=== PATIENT | male | born 1995 | race Hispanic/Latino ===

== ENCOUNTER 2023-01-01 04:51 | Emergency (ER) | payer OTHER, SELFPAY ==
[~2023-01-01] VITALS: Ht 170.2 cm; Wt 81.6 kg
[2023-01-01 05:23] LABS: BASOPHILS % (AUTO) 0.5 % (0.0-5.0); EOSINOPHILS % (AUTO) 0.8 % (0.0-8.0); HEMATOCRIT 42.6 % (42-54); LYMPHOCYTES % (AUTO) 14.5 % (21.0-51.0); MEAN CORPUSCULAR HEMOGLOBIN 31.6 pg (27.0-33.0); MEAN CORPUSCULAR VOLUME 90.4 fL (79-99); MONOCYTES % (AUTO) 6.7 % (3.0-13.0); PLATELET COUNT (AUTO) 322 K/uL (130-400); RED BLOOD CELL COUNT(AUTO) 4.71 MIL/uL (4.50-6.20); RED CELL DISTRIBUTION WIDTH 11.9 % (11.0-15.5); WHITE BLOOD COUNT (AUTO) 15.4 K/uL (4.8-10.8)
[2023-01-01 05:29] LABS: APPEARANCE,URINE CLOUDY (CLEAR); BILIRUBIN,URINE NEGATIVE (NEGATIVE); COLOR,URINE LIGHT-ORANGE (YELLOW); GLUCOSE, URINE (UA) NEGATIVE (NEGATIVE); KETONES,URINE NEGATIVE (NEGATIVE); LEUKOCYTE ESTERASE ,URINE NEGATIVE Leu/uL (NEGATIVE); NITRATE,URINE NEGATIVE (NEGATIVE); OCCULT BLOOD,URINE LARGE (NEGATIVE); PH,URINE 5.5 (5.0-8.0); PROTEIN,URINE 70 mg/dL (NEGATIVE); UROBILINOGEN,URINE 0.2 mg/dL (0.2-1.0)
[2023-01-01] MEDS ORDERED: MORPHINE 2 MG SYG IVP ONE (05:30)
[2023-01-01] MEDS ORDERED: KETOROLAC 30MG VIAL (30MG/ML) IVP ONE (05:30)
[2023-01-01] MEDS ORDERED: ONDANSETRON 4MG INJ IVP ONE (05:30)
[2023-01-01] MEDS ORDERED: 0.9%NACL 1000ML 2,000 ML IV ONE (05:30)
[2023-01-01 05:37] LABS: BACTERIA,URINE RARE /HPF (None Seen); MUCUS,URINE FEW LPF (None Seen); RBC,URINE TNTC /HPF (0-1); SQUAMOUS EPITHELIAL CELL,UR RARE /HPF (0-2); YEAST,URINE BUDDING FEW /HPF (None Seen)
[2023-01-01 05:46] LABS: CREATININE 1.1 mg/dL (0.5-1.5); POTASSIUM 3.6 mmol/L (3.5-5.1)
[2023-01-01 05:51] LABS: ALBUMIN 3.9 g/dL (3.5-5.0); TOTAL PROTEIN, SERUM 7.3 g/dL (6.0-8.3)
[2023-01-01 09:51] VITALS: BP 137/81
[2023-01-01] MEDS ORDERED: FAMO-136 PO (10:14)
[2023-01-01] MEDS ORDERED: METO-296 PO (10:14)
[2023-01-01] MEDS ORDERED: TAMS-1 PO (10:14)
[2023-01-01] MEDS ORDERED: KETO10 PO (10:14)
== END 2023-01-01 10:38 | disposition home or self-care (01) ==
LOC: EDH 04:51
DX: N20.0 Calculus of kidney (principal); Z88.0 Allergy status to penicillin
CPT/HCPCS: 99285; 74176; 96374; 96361; 96375; 80053; 83690; 85025; 87088; 81001; 36415; J2270; J7030; J2405; J1885

== ENCOUNTER 2024-08-25 10:22 | Emergency (ER) | payer BC ==
[~2024-08-25] VITALS: Ht 170.2 cm; Wt 85.3 kg
[~2024-08-25 10:22] MED LIST: FAMO-136 PO; KETO10 PO; METO-296 PO; TAMS-1 PO
--- NOTE | 2024-08-25 10:29 | ERN ---
ED Note History of Present Illness Stated Complaint: ABSCESS TO LT GLUTEAL Chief Complaint: Abscess Time Seen by MD: 10:24 Time Seen by Midlevel: 10:28 Dictation: PATIENT IS A 28-YEAR-OLD [employer] WORK[employer] HERE WITH A LEFT GLUTEAL ABSCESS HE HAS HAD OFF AND ON FOR ONE YEAR. HE STATES HE HAS NEVER DONE ANYTHING ABOUT IT UNTIL THE LAST COUPLE OF DAYS WHEN HE CAME INTO TOWN AND DECIDED TO FOLLOW UP. NO FEVER NO CHILLS NO NAUSEA VOMITING. NO DIABETES. PATIENT HAS A PRIMARY CARE DOCTOR, DR. NICOLAS, HAS NOT BEEN TO SEE HIM. Allergies: Coded Allergies: Penicillins (Unverified Allergy, Unknown, 01/01/23) Home Meds Active Scripts Ibuprofen (Ibuprofen 800 mg Tab) 800 Mg Tab, 800 MG PO Q8H PRN for fever or pain, #30 TAB 0 Refills Prov:LORNE HILARIO NP 08/25/24 Clindamycin HCl (Clindamycin HCl) 300 Mg Capsule, 1 CAP PO QID for 10 Days, #40 CAP 0 Refills Prov:LORNE HILARIO NP 08/25/24 Metoclopramide HCl (Reglan) 10 Mg Tablet, 10 MG PO QID, #30 TAB 2 Refills Prov:EL HUYNH Sr., MD 01/01/23 Famotidine (Pepcid) 20 Mg Tablet, 20 MG PO BID, #60 TAB 2 Refills Prov:EL HUYNH Sr., MD 01/01/23 Ketorolac Tromethamine (Toradol) 10 Mg Tab, 10 MG PO TID, #6 TAB 0 Refills Prov:EL HUYNH Sr., MD 01/01/23 Tamsulosin HCl (Flomax) 0.4 Mg Cap.er.24h, 0.4 MG PO DAILYDINNER, #[address] Rust Refill Prov:EL HUYNH Sr., MD 01/01/23 Past Medical History Past Medical History: No Pertinent History Surgical History: None Family History: Negative Social History: Negative, Lives with family RN Note Reviewed/Agreed w/PFSH: Yes Review of System Dictation CONSTITUTIONAL: NEGATIVE EXCEPT FOR HPI HEAD/FACE: NEGATIVE EXCEPT FOR HPI EENT: NEGATIVE EXCEPT FOR HPI RESPIRATORY: NEGATIVE EXCEPT FOR HPI GASTROINTESTINAL/ABDOMINAL: NEGATIVE EXCEPT FOR HPI GENITOURINARY: NEGATIVE EXCEPT FOR HPI MUSCULOSKELETAL: NEGATIVE EXCEPT FOR HPI INTEGUMENTARY: NEGATIVE EXCEPT FOR HPI LEFT GLUTEAL ABSCESS NEUROLOGICAL/PSYCH: NEGATIVE EXCEPT FOR HPI HEMATOLOGIC/LYMPHATIC: NEGATIVE EXCEPT FOR HPI ALL SYSTEMS NEGATIVE, EXCEPT NOTED ABOVE. 13 POINT REVIEW OF SYSTEMS ASSESSED AND ALL NEGATIVE EXCEPT FOR ABOVE. Initial Vital Sign VS Vital Signs Date Time Temp Pulse Resp B/P (MAP) Pulse Ox O2 Delivery O2 Flow Rate FiO2 08/25/24 10:23 98.2 85 16 120/75 98 Room Air 0 Physical Exam Dictation VITAL SIGNS REVIEWED IN ROOM WITH EXAM GENERAL APPEARANCE: ALERT, ORIENTED X 3, NO ACUTE DISTRESS, WELL DEVELOPED, NOURISHED. HEAD AND FACE: NON-TRAUMATIC. EYES: PERRL, PINK CONJUNCTIVAS, EYELID NO TRAUMA, ANTERIOR CHAMBER WITH ARCUS SENILIS. EARS: PINNAS INTACT AND NO SIGNS OF TRAUMA OR ERYTHEMA EAR CANALS CLEAR AND NO DISCHARGE TM NO ERYTHEMA NOSE: NO DISCHARGE, NO BLEEDING. OROPHARYNX: MOUTH NORMAL, TONGUE PINK, PHARYNX CLEAR,NO ERYTHEMA, TONSILS NO EXUDATES, NO ABSCESSES NOTED, MUCOUS MEMBRANE MOIST NECK: SUPPLE, NON-TENDER, NO THYROMEGALY, NO MASSES, NO JVD, NO BRUITS BREAST:DEFERRED CHEST:NO TENDERNESS, NO CREPITUS, NO PARADOXICAL MOVEMENT, NO RETRACTIONS LUNGS:CLEAR, WELL-VENTILATED, SYMMETRIC, NO RALES, NO WHEEZING, NO RHONCHI, NO STRIDOR, GOOD BREATH SOUNDS BILATERALLY HEART: REGULAR RATE, REGULAR RHYTHM, NO MURMUR, NO GALLOPS VASCULAR: NO PERIPHERAL EDEMA, ABDOMEN: SOFT, POSITIVE BOWEL SOUNDS, NONDISTENDED, NO GUARDING, NONTENDER, NO REBOUND, NO MASSES NO HEPATOMEGALY, NO SPLENOMEGALY, NO LYNN'S SIGN, NO HERNIAS. RECTAL: DEFERRED GENITAL: DEFERRED NEUROLOGICAL: NORMAL SPEECH, MOTOR FUNCTION INTACT, SENSORY FUNCTION INTACT MUSCULOSKELETAL: NECK NONTENDER, FULL RANGE OF MOTION, BACK NONTENDER, FULL RANGE OF MOTION, EXTREMITIES: MILD ERYTHEMA TO DISTAL ASPECT OF LEFT GLUTEUS. NO FLUCTUANCE LYMPHATIC: DEFERRED Results (Laboratory/Radiology) Labs Reviewed?: Yes ED Course ED Course Orders Procedure Category Date Status Time Ibuprofen 800 Mg Tab PHA 08/25/24 Complete (Motrin) 10:30 Current Medications Medications (Trade) Dose Ordered Sig/Yulia Route PRN Reason Start Time Stop Time Status Last Admin Dose Admin Ibuprofen (moTRIN) 800 mg ONCE ONCE PO 08/25/24 10:30 08/25/24 10:31 DC Vital Signs Date Time Temp Pulse Resp B/P (MAP) Pulse Ox O2 Delivery O2 Flow Rate FiO2 08/25/24 10:23 98.2 85 16 120/75 98 Room Air 0 1107/PATIENT WILL BE DISCHARGED HOME WITH LEFT GLUTEUS CELLULITIS. HE WILL BE STARTED ON CLINDAMYCIN AND REFERRED TO SURGEON AND/OR HIS PRIMARY CARE DOCTOR. Medical Decision Making MDM MEDICAL DISCHARGE MAKING BASED ON PHYSICAL EXAMINATION AND TREATMENT EMPIRICALLY WITH ANTIBIOTICS. PATIENT WILL BE DISCHARGED HOME WITH CLINDAMYCIN AND SURGEON'S NAME TO FOLLOW UP WITH THE NEXT SEVERAL DAYS. ADDITIONALLY HE WAS REFERRED TO HIS PRIMARY CARE DOCTOR IF NEEDED DX & DISP Disposition: Discharge Departure Impression: Primary Impression: Cellulitis, gluteal, left Condition: Stable Scripts Ibuprofen (Ibuprofen 800 mg Tab) 800 Mg Tab 800 MG PO Q8H PRN for fever or pain, #30 TAB 0 Refills Prov: LORNE HILARIO NP 08/25/24 Clindamycin HCl (Clindamycin HCl) 300 Mg Capsule 1 CAP PO QID for 10 Days, #40 CAP 0 Refills Prov: LORNE HILARIO NP 08/25/24 Additional Instructions: FOLLOW-UP WITH PRIMARY CARE PROVIDER IN 1 TO 2 DAYS. TAKE MEDICATIONS DIRECTED HERE IN THE EMERGENCY ROOM. OKAY TO CONTINUE HOME MEDICATIONS UNLESS OTHERWISE DISCUSSED DURING YOUR VISIT IN THE EMERGENCY ROOM TODAY. RETURN TO YOUR NEAREST EMERGENCY ROOM IF SYMPTOMS WORSEN OR IF THERE IS NO IMPROVEMENT. CALL 911 IF YOU NEED IMMEDIATE ASSISTANCE. TAKE TYLENOL OR MOTRIN [id number] NEEDED AND IF NO CONTRAINDICATIONS ARE PRESENT. INCREASE ORAL HYDRATION. A WOUND CULTURE OR URINE CULTURE WAS ORDERED HERE IN THE EMERGENCY ROOM DEPARTMENT PLEASE FOLLOW-UP WITH PRIMARY CARE PROVIDER AND ADVISE THEM TO GET REPEAT PORTS FROM OUR FACILITY. IF YOU HAD ANY MURIEL WRAP/SPLINTS THAT WERE APPLIED HERE, PLEASE DO NOT REMOVE THEM UNTIL YOU SEE YOUR PRIMARY CARE OR SPECIALTY. TAKE CLINDAMYCIN DIRECTED UNTIL GONE. WARM COMPRESSES TO PAIN OR WARM BATH THREE TO 4 TIMES A DAY. CALL SURGEON FOR AN APPOINTMENT IN THE NEXT 2-3 DAYS OR SEE YOUR PRIMARY CARE DOCTOR FOR FOLLOW UP. Referrals: NONE (PCP) JUSTIN MAXWELL MD Time of Disposition: 11:09 I have reviewed the case, and I agree with, Diagnosis and Plan LORNE HILARIO NP Aug 25, 2024 10:29 ALBARO REYES DO Aug 25, 2024 11:11
[2024-08-25] MEDS ORDERED: ibuPROFEN 800 MG TAB PO ONE (10:30)
[2024-08-25] MEDS ORDERED: IBUP-2077 PO (11:09)
[2024-08-25] MEDS ORDERED: CLIN-141 PO (11:09)
[2024-08-25 11:37] VITALS: BP 120/75; PULSE 85; RESP 16; TEMP 98.3; O2SAT 98
== END 2024-08-25 11:40 | disposition home or self-care (01) ==
LOC: EDH 10:22
DX: L03.317 Cellulitis of buttock (principal); Z79.1 Long term (current) use of non-steroidal anti-inflammatories (NSAID); Z88.0 Allergy status to penicillin; Z79.899 Other long term (current) drug therapy
CPT/HCPCS: 99283